=== PATIENT | female | born 1945 | race Caucasian/White ===

== ENCOUNTER 2020-08-01 13:47 | Outpatient (CLI) | payer MEDICARE ==
--- NOTE | 2020-08-01 15:34 | RAD ---
THORACIC SPINE TWO VIEWS: 08/01/20 INDICATION: History of bilateral back pain. COMPARISON: None. FINDINGS: There is a wedge compression fracture of the estimated T6 and T4 vertebral levels of undetermined chr onicity. The visualized lungs are clear. Loop recorder overlies the left chest wall. 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 IMPRESSION: 1. Moderate wedge compression at T4 and T6 of indeterminate chronicity. Follow-up MRI may be hel pful to evaluate chronicity. Alternatively, a bone scan may be performed. 2. Moderate multilevel thoracic spondylosis. POS: BH
== END 2020-08-01 13:48 | disposition home or self-care (01) ==
LOC: BICRAD 13:47
PROVIDERS: ATTEND Nurse Practitioner Family
DX: M54.6 Pain in thoracic spine (principal); M47.814 Spondylosis without myelopathy or radiculopathy, thoracic region
CPT/HCPCS: 72070